=== PATIENT | female | born 1985 | race Caucasian/White ===

== ENCOUNTER 2017-01-24 22:34 | Emergency (ER) | payer OTHER ==
[~2017-01-24] VITALS: Ht 165.1 cm; Wt 91.4 kg
[2017-01-24 23:49] VITALS: BP 122/86
== END 2017-01-25 | disposition home or self-care (01) ==
LOC: EME 22:34
DX: S63.502A Unspecified sprain of left wrist, initial encounter (principal); Y04.0XXA Assault by unarmed brawl or fight, initial encounter; Y99.0 Civilian activity done for income or pay; F17.200 Nicotine dependence, unspecified, uncomplicated
CPT/HCPCS: 73110; 99281; 99284